=== PATIENT | male | born 1955 | race Caucasian/White ===

== ENCOUNTER 2017-06-14 09:19 | Emergency (ER) | payer MEDICAID ==
[~2017-06-14] VITALS: Ht 172.7 cm; Wt 96.0 kg
[2017-06-14 09:21] VITALS: BP 156/92
[2017-06-14] MEDS ORDERED: AMLO5TAB2 PO (10:00)
[2017-06-14] MEDS ORDERED: CARI250T PO (10:00)
[2017-06-14] MEDS ORDERED: HYDR-3240 PO (10:00)
[2017-06-14] MEDS ORDERED: HYDR25TA6 PO (10:00)
== END 2017-06-14 10:23 | disposition home or self-care (01) ==
LOC: ED 09:41
DX: H43.811 Vitreous degeneration, right eye (principal); I10 Essential (primary) hypertension; Z87.891 Personal history of nicotine dependence
CPT/HCPCS: 99281

== ENCOUNTER 2017-09-18 06:26 | Emergency (ER) | payer MEDICAID ==
[~2017-09-18] VITALS: Ht 172.7 cm; Wt 92.0 kg
[~2017-09-18 06:26] MED LIST: AMLO5TAB2 PO; CARI250T PO; HYDR-3240 PO; HYDR25TA6 PO
[2017-09-18] MEDS ORDERED: ALBUTEROL/IPRATROPIUM 2.5MG/0.5MG, 3 ML NEB ONE (07:30)
[2017-09-18] MEDS ORDERED: ALBUTEROL/IPRATROPIUM 2.5MG/0.5MG, 3 ML ONE (07:41)
[2017-09-18 08:37] VITALS: BP 125/84
== END 2017-09-18 08:39 | disposition home or self-care (01) ==
LOC: ED 07:30
DX: J43.9 Emphysema, unspecified (principal); Z87.891 Personal history of nicotine dependence
CPT/HCPCS: 71045; 93005; 94640; 99285; J7512; J7620

== ENCOUNTER 2018-03-01 05:08 | Emergency (ER) | payer MEDICAID ==
[~2018-03-01] VITALS: Ht 172.7 cm; Wt 95.1 kg
[2018-03-01 05:10] VITALS: BP 150/86
[2018-03-01] MEDS ORDERED: LIDOCAINE-MPF 1%, 2ML ONE (05:51)
[2018-03-01] MEDS ORDERED: LIDOCAINE-MPF 1%, 2ML INFIL ONE ×2 (06:00)
== END 2018-03-01 06:37 | disposition home or self-care (01) ==
LOC: ED 06:33
DX: L72.3 Sebaceous cyst (principal); J44.9 Chronic obstructive pulmonary disease, unspecified; I10 Essential (primary) hypertension; Z87.891 Personal history of nicotine dependence
CPT/HCPCS: 10060; 99283

== ENCOUNTER 2018-03-03 06:19 | Emergency (ER) | payer MEDICAID ==
[~2018-03-03] VITALS: Ht 172.7 cm; Wt 93.3 kg
[2018-03-03 06:22] VITALS: BP 147/91
== END 2018-03-03 06:53 | disposition home or self-care (01) ==
LOC: ED 06:50
DX: L02.212 Cutaneous abscess of back [any part, except buttock and flank] (principal); M72.0 Palmar fascial fibromatosis [Dupuytren]; J44.9 Chronic obstructive pulmonary disease, unspecified; I10 Essential (primary) hypertension
CPT/HCPCS: 99283

== ENCOUNTER → 2018-05-05 | Outpatient (CLI) | payer MEDICAID ==
[~2018-05-05] MED LIST changes: -AMLO5TAB2 PO; +AMLO5TAB7 PO
== END | disposition home or self-care (01) ==
LOC: CFH 09:56
PROVIDERS: ATTEND Nurse Practitioner Family
DX: R91.8 Other nonspecific abnormal finding of lung field (principal); Z87.891 Personal history of nicotine dependence
CPT/HCPCS: 71250

== ENCOUNTER 2018-11-01 11:32 | Emergency (ER) | payer MEDICAID, MEDICARE ==
[~2018-11-01] VITALS: Ht 172.7 cm; Wt 94.2 kg
[~2018-11-01 11:32] MED LIST changes: +AMLO-150 PO; -AMLO5TAB7 PO
[2018-11-01 11:36] VITALS: BP 136/86
--- NOTE | 2018-11-01 11:50 | NUR ---
pt to ed for dental pain and swelling to right lower jaw x 3 days. lab at bedside. pt to xray at this time. awaiting pa assessment.
[2018-11-01 12:03] LABS: BASOPHILS # (AUTO) 0.05 x10^3/uL (0-0.1); BASOPHILS % (AUTO) 1 % (0-1); EOSINOPHILS % (AUTO) 2 % (1-7); LYMPHOCYTES % (AUTO) 21 % (22-44); MD NO; MEAN CORPUSCULAR HEMOGLOBIN 33.6 pg (27.5-34.5); MEAN CORPUSCULAR HGB CONC 34.1 g/dL (33.2-36.2); MEAN CORPUSCULAR VOLUME 98.6 fL (81-97); MEAN PLATELET VOLUME 8.7 fL (7.4-10.4); MONOCYTES # (AUTO) 0.79 x10^3/uL (0.2-0.8); MONOCYTES % (AUTO) 9 % (2-9); NEUTROPHILS # (AUTO) 6.35 x10^3/uL (1.8-6.8); NEUTROPHILS % (AUTO) 68 % (42-75); PLATELET COUNT 308 x10^3/uL (130-400); RED BLOOD COUNT 4.66 x10^6/uL (4.38-5.82); RED CELL DISTRIBUTION WIDTH 13.2 % (9.4-14.8)
[2018-11-01 12:14] LABS: ALBUMIN 3.7 g/dL (3.4-5.0); ANION GAP 7 mmol/L (5-15); CHLORIDE 108 mmol/L (98-107); CREATININE 0.99 mg/dL (0.7-1.3)
[2018-11-01] MEDS ORDERED: BACITRACIN ZINC OINT 500U/GM, 0.9 GM ONE (12:21)
== END 2018-11-01 12:42 | disposition home or self-care (01) ==
LOC: ED 12:36
DX: K08.89 Other specified disorders of teeth and supporting structures (principal); M79.642 Pain in left hand; J44.9 Chronic obstructive pulmonary disease, unspecified; I10 Essential (primary) hypertension; Z87.891 Personal history of nicotine dependence
CPT/HCPCS: 36415; 80048; 82040; 85025; 99284

== ENCOUNTER 2019-12-09 08:26 | Outpatient (CLI) | payer MEDICAID, MEDICARE | END 2019-12-09 23:59 | disposition home or self-care (01) | LOC: RAD 08:26 | PROVIDERS: ATTEND Nurse Practitioner Family | DX: R05 Cough (principal) | CPT/HCPCS: 71046 ==

== ENCOUNTER 2020-09-13 18:08 | Emergency (ER) | payer MEDICARE, MEDICAID ==
[~2020-09-13] VITALS: Ht 172.7 cm; Wt 92.0 kg
--- NOTE | 2020-09-13 18:41 | NUR ---
PATIENT IS A 65/M COMPLAINING OF SINUS PAIN, SOB, AND CP. POSTITVE COVID ABOUT 10 DAYS AGO. HE DOES NOT APPEAR TO BE IN DISTRESS. HE IS SPEAKING IN FULL SENTENCES. WIRE DRAWING MACHINE OPERATOR PLACED, CONTINUOUS SPO2, AND CYCLING VITALS. PROVIDER AT BEDSIDE FOR EVAL.PLAN OF CARE DISCUSSED. CALL LIGHT WITHIN REACH.
--- NOTE | 2020-09-13 19:05 | NUR ---
REPORT received for pt. pt awake and alert, no acute distress. has positive cough. resting comfortably in bed, on cr monitor, call light within reach.
--- NOTE | 2020-09-13 19:40 | NUR ---
pt awake and alert, no distress. lab to bedside to draw labs. pt using urinal in room for restroom. good aeration and oxygenation.
[2020-09-13 19:55] LABS: BASOPHILS % (AUTO) 1 % (0-1); EOSINOPHILS % (AUTO) 4 % (1-7); LYMPHOCYTES % (AUTO) 26 % (22-44); MEAN CORPUSCULAR HEMOGLOBIN 33.6 pg (27.5-34.5); MEAN CORPUSCULAR HGB CONC 34.7 g/dL (33.2-36.2); MEAN PLATELET VOLUME 8.5 fL (7.4-10.4); MONOCYTES % (AUTO) 11 % (2-9); NEUTROPHILS % (AUTO) 58 % (42-75); PLATELET COUNT 461 x10^3/uL (130-400); RED BLOOD COUNT 4.22 x10^6/uL (4.38-5.82); RED CELL DISTRIBUTION WIDTH 13.1 % (9.4-14.8)
[2020-09-13 19:57] LABS: MD NO
[2020-09-13 19:58] VITALS: BP 142/89
[2020-09-13 20:08] LABS: ALANINE AMINOTRANSFERASE 67 U/L (12-78); ALBUMIN 3.3 g/dL (3.4-5.0); ANION GAP 9 mmol/L (5-15); CHLORIDE 111 mmol/L (98-107); CREATININE 0.83 mg/dL (0.7-1.3)
[2020-09-13 20:13] LABS: ALKALINE PHOSPHATASE 164 U/L (45-117); BILIRUBIN,TOTAL 0.5 mg/dL (0.2-1.0); TOTAL PROTEIN 6.9 g/dL (6.4-8.2); TROPONIN I < 0.015 ng/mL (0.000-0.045)
[2020-09-13] MEDS ORDERED: POTASSIUM CHLORIDE 20 MEQ TAB.ER.PRT ONE (20:43)
[2020-09-13] MEDS ORDERED: POTASSIUM CHLORIDE 20 MEQ TAB.ER.PRT PO ONE (21:00)
--- NOTE | 2020-09-13 21:03 | NUR ---
f/u and d/c instructions given to pt, and he v/u. pt given 2 tabs kdur per EMAR, and tolerated well. pt ambulatory and d/c'd without incident.
== END 2020-09-13 21:05 | disposition home or self-care (01) ==
LOC: ED 19:30
DX: U07.1 COVID-19 (principal); B34.9 Viral infection, unspecified; E87.6 Hypokalemia; R05 Cough; R51.9 Headache, unspecified; M79.10 Myalgia, unspecified site; R07.89 Other chest pain; R06.00 Dyspnea, unspecified; R09.81 Nasal congestion; G89.29 Other chronic pain; I10 Essential (primary) hypertension; J43.9 Emphysema, unspecified; I45.10 Unspecified right bundle-branch block; Z88.9 Allergy status to unspecified drugs, medicaments and biological substances; Z87.891 Personal history of nicotine dependence; Z79.899 Other long term (current) drug therapy
CPT/HCPCS: 36415; 71045; 80053; 83880; 84484; 85025; 93005; 99285